=== PATIENT | female | born 1945 | race Caucasian/White ===

== ENCOUNTER 2017-04-09 09:21 | Emergency (ER) | payer MEDICARE, BC | END 2017-04-09 12:50 | disposition home or self-care (01) | LOC: D.ER 09:21 | DX: S93.402A Sprain of unspecified ligament of left ankle, initial encounter (principal); X58.XXXA Exposure to other specified factors, initial encounter; K21.9 Gastro-esophageal reflux disease without esophagitis; R60.0 Localized edema; M25.572 Pain in left ankle and joints of left foot ==